=== PATIENT | male | born 1995 | race Caucasian/White ===

== ENCOUNTER 2017-10-04 02:32 | Inpatient (IN) | payer OTHER ==
[2017-10-04 02:40] VITALS: BP 135/97; PULSE 111; RESP 16; TEMP 98.1; O2SAT 99
[2017-10-04 02:55] VITALS: BP 141/99; PULSE 104; RESP 18; O2SAT 98
[2017-10-04] MEDS ORDERED: AMOXICILLIN/CLAVULANATE K 875 MG TAB PO ONE (03:00)
[2017-10-04] MEDS ORDERED: TETANUS/DIPHTHERIA TOXOID ADULT 0.5 ML VIAL IM ONE (03:00)
[2017-10-04] MEDS ORDERED: oxyCODONE/ACETAMINOPHEN 5 MG/325 MG TAB PO ONE (03:00)
--- NOTE | 2017-10-04 03:45 | RADRPT ---
EXAM DATE/TIME: 10/04/2017 03:28 [place] COMPARISON: No previous studies available for comparison. INDICATIONS : Right hand pain, light fell on hand. MEDICAL HISTORY : None. SURGICAL HISTORY : None. ENCOUNTER: Initial ACUITY: 1 day PAIN SCORE: 10/10 LOCATION: Right hand, second and third digit FINDINGS: Crushtype fracture seen head and neck region of the proximal phalanx of the long finger. There is a s agittally oriented fracture that essentially bisects the condyle to the head of the bone. Approximate ly 1 mm of separation of the fracture fragments at the articular surface. The neck portion of the fra cture is nearly transverse. Focal collection of radiopaque debris seen in the soft tissues medial to the long finger proximal int erphalangeal joint. CONCLUSION: Fracture distally of the long finger proximal phalanx as described above, intra-articular at the prox imal interphalangeal joint. Collection of radiopaque debris in the soft tissues medial to the joint. Oliver Sandoval MD on October 04, 2017 at 3:42 Board Certified Radiologist. This report was verified electronically.
[2017-10-04] MEDS ORDERED: HYDROmorphone HCL PF 2 MG/ML VIAL ONE (03:49)
[2017-10-04] MEDS ORDERED: HYDROmorphone HCL PF 2 MG/ML VIAL IV PUSH ONE (03:50)
--- NOTE | 2017-10-04 03:59 | PD ---
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 It slammed down onto his right hand He comes into the ER with pain and swelling and bleeding Injury happened just prior to arrival ...JPTA . tetanus status unknown . Pt is given augmentin and percocet and xrays ordered Dr flores called , [place] tech Hung bedside PFS Past Medical History Cancer: Yes (stage 2 testicular with chemo 2013) Hypertension: Yes (borderline) Medical other: Yes (blood clot in lung from picc line 2014) Tetanus Vaccination: Unknown Influenza Vaccination: No Past Surgical History Surgical History: No Previous Surgery Other Surgery: Yes (2013 testicle removal) Social History Alcohol Use: Yes (occasional ) Tobacco Use: No Substance Use: No Allergies-Medications (Allergen,Severity, Reaction): Coded Allergies: No Known Allergies (Unverified , 10/04/17) Reported Meds & Prescriptions Reported Meds & Active Scripts Active Percocet (Oxycodone-Acetaminophen) 7.5-325 mg Tab 1 Tab PO Q6H PRN Review of Systems Except as stated in HPI: all other systems reviewed are Neg Physical Exam Narrative RIGHT HAND swollen tender bleeding liner streaks ontop of the PIP joints 2-4 th finger dorsum hand symetrically swollen and fingers are all symetrically swollen Data Data Last Documented VS Orders Orders Oxycodone-Acetamin 5-325 Mg (Percocet (10/04/17 03:00) Tetanus/Diphtheria Tox Adult (Tetanus/Di (10/04/17 03:00) Amoxicil-Clavulanate (Augmentin) (10/04/17 03:00) Hand, Complete ([id number]) (10/04/17 ) Consult Hand Surgery (10/04/17 ) Complete Blood Count With Diff (10/04/17 03:41) Comprehensive Metabolic Panel (10/04/17 03:41) Prothrombin Time / Inr (Pt) (10/04/17 03:41) Hydromorphone Pf Inj (Dilaudid Pf Inj) (10/04/17 03:49) Hydromorphone Pf Inj (Dilaudid Pf Inj) (10/04/17 03:50) (Hub Use Only)Inp Phy Cons/Ref (10/04/17 03:56) Admit To Inpatient (10/04/17 ) Vital Signs (Adult) Q4H (10/04/17 04:18) Activity Oob With Assistance (10/04/17 04:18) Diet Npo (10/04/17 Breakfast) Sodium Chlor 0.9% 1000 Ml Inj (Ns 1000 M (10/04/17 04:18) Sodium Chloride 0.9% Flush (Ns Flush) (10/04/17 04:30) Sodium Chloride 0.9% Flush (Ns Flush) (10/04/17 09:00) Acetaminophen (Tylenol) (10/04/17 04:30) Ondansetron Inj (Zofran Inj) (10/04/17 04:30) Ot Request For Service (10/04/17 04:18) Naloxone Inj (Narcan Inj) (10/04/17 04:30) Docusate Sodium-Senna (Sarai-Colace) (10/04/17 09:00) Magnesium Hydroxide Liq (Milk Of Magnesi (10/04/17 04:30) Sennosides (Senokot) (10/04/17 04:30) Bisacodyl Supp (Dulcolax Supp) (10/04/17 04:30) Lactulose Liq (Lactulose Liq) (10/04/17 04:30) Inpatient Certification (10/04/17 ) Hydromorphone Pf Inj (Dilaudid Pf Inj) (10/04/17 04:30) Sling Colles (10/04/17 ) Ice Cuff (10/04/17 ) Admit Order (Ed Use Only) (10/04/17 05:47) Labs Laboratory Tests Test 10/04/17 03:45 White Blood Count 9.3 TH/MM3 Red Blood Count 5.37 MIL/MM3 Hemoglobin 15.7 GM/DL Hematocrit 43.6 % Mean Corpuscular Volume 81.2 FL Mean Corpuscular Hemoglobin 29.2 PG Mean Corpuscular Hemoglobin Concent 36.0 % Red Cell Distribution Width 13.4 % Platelet Count 194 TH/MM3 Mean Platelet Volume 8.0 FL Neutrophils (%) (Auto) 63.3 % Lymphocytes (%) (Auto) 27.2 % Monocytes (%) (Auto) 7.5 % Eosinophils (%) (Auto) 1.5 % Basophils (%) (Auto) 0.5 % Neutrophils # (Auto) 5.9 TH/MM3 Lymphocytes # (Auto) 2.5 TH/MM3 Monocytes # (Auto) 0.7 TH/MM3 Eosinophils # (Auto) 0.1 TH/MM3 Basophils # (Auto) 0.0 TH/MM3 CBC Comment AUTO DIFF Differential Comment AUTO DIFF CONFIRMED Platelet Estimate NORMAL Platelet Morphology Comment NORMAL Red Cell Morphology Comment NORMAL Prothrombin Time 11.0 SEC Prothromb Time International Ratio 1.1 RATIO Blood Urea Nitrogen 22 MG/DL Creatinine 1.20 MG/DL Random Glucose 118 MG/DL Total Protein 7.4 GM/DL Albumin 4.1 GM/DL Calcium Level 9.4 MG/DL Alkaline Phosphatase 106 U/L Aspartate Amino Transf (AST/SGOT) 39 U/L Alanine Aminotransferase (ALT/SGPT) 87 U/L Total Bilirubin 0.8 MG/DL Sodium Level 142 MEQ/L Potassium Level 3.6 MEQ/L Chloride Level 106 MEQ/L Carbon Dioxide Level 26.0 MEQ/L Anion Gap 10 MEQ/L Estimat Glomerular Filtration Rate 76 ML/MIN [facility] Medical Decision Making Medical Screen Exam Complete: Yes Emergency Medical Condition: Yes Differential Diagnosis fracture vs high pressure crush injury compartment syndrome lacerations other Narrative Course xrays show fracture crush type to 3rd finger and there are libear lacerations to dorsum of R hand and has antibiotics and tetanus up dated and admitted for hand surgery consult for crush swelling injury and risk of compartment Diagnosis Primary Impression: Crush injury of hand Qualified Codes: S67.21XA - Crushing injury of right hand, initial encounter Additional Impression: Fractured hand Scripts Oxycodone-Acetaminophen (Percocet) 7.5-325 mg Tab 1 TAB PO Q6H Y for PAIN, #20 TAB 0 Refills Prov: Marielle Luhter DO 10/04/17 Ryan Ahmadi MD Oct 04, 2017 03:59
[2017-10-04] MEDS ORDERED: HYDROmorphone HCL PF 1 MG/ML VIAL IV PUSH ONE (04:00)
[2017-10-04 04:06] LABS: AUTOMATED NEUTROPHIL # 5.9 TH/MM3 (1.8-7.7); BASOPHIL % 0.5 % (0.0-2.0); EOSINOPHIL # 0.1 TH/MM3 (0-0.4); EOSINOPHIL % 1.5 % (0.0-4.0); HEMATOCRIT 43.6 % (39.0-51.0); HEMOGLOBIN 15.7 GM/DL (13.0-17.0); LYMPH % 27.2 % (9.0-44.0); LYMPHOCYTE # 2.5 TH/MM3 (1.0-4.8); MEAN CELL VOLUME 81.2 FL (80.0-100.0); MEAN CORPUSCULAR HEMOGLOBIN 29.2 PG (27.0-34.0); MONO % 7.5 % (0.0-8.0); MONOCYTE # 0.7 TH/MM3 (0-0.9); NEUT % 63.3 % (16.0-70.0); PLATELET COUNT 194 TH/MM3 (150-450); RED BLOOD COUNT 5.37 MIL/MM3 (4.50-5.90); RED CELL DISTRIBUTION WIDTH 13.4 % (11.6-17.2); WHITE BLOOD COUNT 9.3 TH/MM3 (4.0-11.0)
[2017-10-04 04:13] LABS: INTERNATIONAL NORMALIZED RATIO 1.1 RATIO
[2017-10-04] MEDS ORDERED: SODIUM CHLOR 0.9% 1000 ML INJ 1,000 ML IV SCH (04:18)
--- NOTE | 2017-10-04 04:21 | HHI.HP ---
[facility] Primary Care Physician Admission Diagnosis Diagnoses: Travel History International Travel<30 Days: No Contact w/Intl Traveler <30 Da: No Traveled to Known Affected Are: No History of Present Illness 21-year-old male presents to the emergency department for evaluation of a right hand injury. 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 His hand slipped to underneath the light pole as it was being lowered and the patient sustained a crush injury to his right hand. He reports a crunching sound at the moment of impact. He endorses significant right hand pain and swelling. Several lacerations are present on the dorsum of the hand. Review of Systems Except as stated in HPI: all other systems reviewed are Neg Denies fever or chills Denies blurry vision, otorrhea, rhinorrhea Denies sore throat and cough No chest pain, palpitations No shortness of breath or wheezing No abdominal pain Denies constipation/diarrhea/nausea/vomiting Denies muscle pain Denies focal weakness No rashes Past Family Social History Past Medical History History of testicular cancer Past Surgical History Radical orchiectomy Removal of blood clot right atrium in 2014 (caused by PICC line which was present for chemotherapy) Reported Medications Reported Meds & Active Scripts Active No Active Prescriptions or Reported Medications Allergies: Coded Allergies: No Known Allergies (Unverified , 10/04/17) Family History Father with coronary artery disease, [place] at age 47 Social History Facial alcohol. Denies tobacco or illicit drugs. Physical Exam Vital Signs Vital Signs Date Time Temp Pulse Resp B/P (MAP) Pulse Ox O2 Delivery O2 Flow Rate FiO2 10/04/17 02:55 104 18 141/99 (113) 98 Room Air 10/04/17 02:40 98.1 111 16 135/97 (110) 99 Physical Exam GENERAL: male sitting up in bed SKIN: No rashes, ecchymoses or lesions. Cool and dry. HEAD: Atraumatic. Normocephalic. No temporal or scalp tenderness. EYES: Pupils equal round and reactive. Extraocular motions intact. No scleral icterus. No injection or drainage. ENT: Nose without bleeding, purulent drainage or septal hematoma. Throat without erythema, tonsillar hypertrophy or exudate. Uvula midline. Airway patent. NECK: Trachea midline. No JVD or lymphadenopathy. Supple, nontender, no meningeal signs. CARDIOVASCULAR: Regular rate and rhythm without murmurs, gallops, or rubs. RESPIRATORY: Clear to auscultation. Breath sounds equal bilaterally. No wheezes , rales, or rhonchi. GASTROINTESTINAL: Abdomen soft, non-tender, nondistended. No hepato-splenomegaly , or palpable masses. No guarding. MUSCULOSKELETAL: Extremely swollen right hand with several lacerations present. Neurovascularly intact. NEUROLOGICAL: Awake and alert. Cranial nerves II through XII intact. Motor and sensory grossly within normal limits. Normal speech. Laboratory Laboratory Tests Test 10/04/17 03:45 Caprini VTE Risk Assessment Caprini VTE Risk Assessment: No/Low Risk (score <= 1) Caprini Risk Assessment Model Point Value = 1 Point Value = 2 Point Value = 3 Point Value = 5 Age 41-60 Minor surgery BMI > 25 kg/m2 Swollen legs Varicose veins or History of unexplained or recurrent spontaneous Oral contraceptives or hormone replacement Sepsis (< 1 month) Serious lung disease, including pneumonia (< 1 month) Abnormal pulmonary function Acute myocardial infarction Congestive heart failure (< 1 month) History of inflammatory bowel disease Medical patient at bed rest Age 61-74 Arthroscopic surgery Major open surgery (> 45 min) Laparoscopic surgery (> 45 min) Malignancy Confined to bed (> 72 hours) Immobilizing plaster cast Central venous access Age >= 75 History of VTE Family history of VTE Factor V Leiden Prothrombin [id number] Lupus anticoagulant Anticardiolipin antibodies Elevated serum homocysteine Heparin-induced thrombocytopenia Other congenital or acquired thrombophilia Stroke (< 1 month) Elective arthroplasty Hip, pelvis, or leg fracture Acute spinal cord injury (< 1 month) Prophylaxis Regimen Total Risk Factor Score Risk Level Prophylaxis Regimen 0-1 Low Early ambulation 2 Moderate Order ONE of the following: *Sequential Compression Device (SCD) *Heparin 5000 units SQ BID 3-4 Higher Order ONE of the following medications: *Heparin 5000 units SQ TID *Enoxaparin/Lovenox 40 mg SQ daily (WT < 150 kg, CrCl > 30 mL/min) *Enoxaparin/Lovenox 30 mg SQ daily (WT < 150 kg, CrCl > 10-29 mL/min) *Enoxaparin/Lovenox 30 mg SQ BID (WT < 150 kg, CrCl > 30 mL/min) AND/OR *Sequential Compression Device (SCD) 5 or more Highest Order ONE of the following medications: *Heparin 5000 units SQ TID (Preferred with Epidurals) *Enoxaparin/Lovenox 40 mg SQ daily (WT < 150 kg, CrCl > 30 mL/min) *Enoxaparin/Lovenox 30 mg SQ daily (WT < 150 kg, CrCl > 10-29 mL/min) *Enoxaparin/Lovenox 30 mg SQ BID (WT < 150 kg, CrCl > 30 mL/min) AND *Sequential Compression Device (SCD) Assessment and Plan Assessment and Plan Assessment/plan: 1. Right hand injury/trauma And x-ray significant for fracture distally of the long finger proximal phalanx intra-articular at the proximal interphalangeal joint, personally reviewed Hand surgery consulted, appreciate assistance Monitor closely for signs/symptoms of compartment syndrome Dilaudid for pain Nothing by mouth until cleared by hand surgery OT consulted, appreciate recommendations FEN NPO NS at 100 cc/hr Electrolytes: pending Physician Certification 2 Midnight Certification Type: Admission for Inpatient Services Order for Inpatient Services The services are ordered in accordance with Medicare regulations or non- Medicare payer requirements, as applicable. In the case of services not specified as inpatient-only, they are appropriately provided as inpatient services in accordance with the 2-midnight benchmark. Estimated LOS (days): 2 2 days is the estimated time the patient will need to remain in the hospital, assuming treatment plan goals are met and no additional complications. Post-Hospital Plan: Not yet determined Rajani Rocha MD Oct 04, 2017 04:21
[2017-10-04 04:28] LABS: ALBUMIN 4.1 GM/DL (3.4-5.0); ALT (GPT) 87 U/L (12-78); AST (GOT) 39 U/L (15-37); BLOOD UREA NITROGEN 22 MG/DL (7-18); CALCIUM 9.4 MG/DL (8.5-10.1); CHLORIDE 106 MEQ/L (98-107); GLOMERULAR FILTRATION RATE 76 ML/MIN (>89); GLUCOSE,RANDOM 118 MG/DL (74-106); SODIUM (NA) 142 MEQ/L (136-145)
[2017-10-04 04:30] LABS: ALKALINE PHOSPHATASE 106 U/L (45-117); TOTAL BILIRUBIN ADULT 0.8 MG/DL (0.2-1.0); TOTAL PROTEIN 7.4 GM/DL (6.4-8.2)
[2017-10-04] MEDS ORDERED: NALOXONE HCL 0.4 MG/ML AMP IV PUSH PRN (04:30)
[2017-10-04] MEDS ORDERED: SENNOSIDES 8.6 MG TAB PO PRN (04:30)
[2017-10-04] MEDS ORDERED: BISACODYL 10 MG SUPP RECTAL PRN (04:30)
[2017-10-04] MEDS ORDERED: SODIUM CHLORIDE 0.9% FLUSH 10 ML FLUSH IV FLUSH PRN (04:30)
[2017-10-04] MEDS ORDERED: HYDROmorphone HCL PF 2 MG/ML VIAL IV PUSH PRN (04:30)
[2017-10-04] MEDS ORDERED: ACETAMINOPHEN 325 MG TAB PO PRN (04:30)
[2017-10-04] MEDS ORDERED: MAGNESIUM HYDROXIDE SUSP 30 ML CUP PO PRN (04:30)
[2017-10-04] MEDS ORDERED: ONDANSETRON HCL 4 MG/2 ML VIAL IVP PRN (04:30)
[2017-10-04] MEDS ORDERED: LACTULOSE SYRUP 20 GM/30 ML CUP PO PRN (04:30)
[2017-10-04 06:08] VITALS: BP 130/64; PULSE 80; RESP 16; TEMP 97.6; O2SAT 97
[2017-10-04] MEDS ORDERED: DOCUSATE SODIUM 50 MG/SENNA 8.6 MG TAB PO SCH (09:00)
[2017-10-04] MEDS ORDERED: SODIUM CHLORIDE 0.9% FLUSH 10 ML FLUSH IV FLUSH SCH (09:00)
[2017-10-04 09:42] VITALS: BP 129/76; PULSE 78; RESP 16; O2SAT 96
--- NOTE | 2017-10-04 14:17 | MB ---
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 He was admitted to watch for compartment syndrome by the emergency room. I was consulted to evaluate for this. PAST MEDICAL HISTORY: He had testicular cancer with chemotherapy, borderline hypertension. He had a right atrial thrombus from a PICC line 2014, which he had removed surgically in [place], [place]. PAST SURGICAL HISTORY: Open heart surgery for clot removal as well as bilateral orchiectomies. ALLERGIES: NO KNOWN DRUG ALLERGIES. MEDICATIONS: Denied. REVIEW OF SYSTEMS: Patient not complaining of any headaches, double or blurry vision. Not complaining of any coughing, wheeze or shortness of breath. Not complaining of any chest pain or palpitations. Not complaining of any nausea, vomiting or abdominal pain. He is not complaining of any burning, frequency or urgency with urination. He is not complaining of any spine, neck or back pain. He is not complaining of any anxiety, depression, or suicidal ideations. Not complaining of any lesions, rashes or eruptions. He is not complaining of any night sweats, fevers or chills. X-RAYS: Performed and reviewed in the hospital and reveal a middle finger proximal phalanx condylar intraarticular fracture. VITAL SIGNS: Temperature is 98.1, heart rate 100, respiratory rate 16, blood pressure 135/97. Pulse oximetry is 97% to 99% on every finger on the right hand. EXAMINATION: The patient is awake, alert, oriented x 3. Normocephalic, atraumatic. Pupils are equal, round. His respiratory effort is normal. He is very pleasant. He is sitting comfortably in his bed with his family in the room. Examination of the right upper extremity reveals a little bit of erythema and swelling to right second, third and fourth fingers. There is no injury to the hand, so there is no compartment syndrome. The fingers are all soft as well and all appear intact. There is a small christopher on the skin and some abrasion, but there is no evidence of any open component. Capillary refill is less than 2 seconds all fingertips. Fingertips are all soft. The muscle compartments in the hand are completely soft. Sensation is fully intact as well. Palpable radial pulse. IMPRESSION: Crush injury second, third and fourth fingers, right side. Also, right third proximal phalangeal fracture. PLAN: I recommend continued elevation, splint. I do not believe this will develop into compartment syndrome. I would recommend elective repair of the middle finger. The patient states he lives 2[place]/2 hours away, so he can see us in the office here if he would like, or I have given him the names of 2 surgeons over in the area where he lives who are excellent and will take it from there. I am going to come back after lunch after seeing patients in the office, and I will recheck him to make sure that he is not getting any signs or symptoms of compartment syndrome, and if he looks okay at that time, then it will be my recommendation that he be discharged. Discussed this with the patient's family, as well as his nurse, as well as the emergency room physician, and they all agreed. I discontinued the use of the cooling wrap in the splint, which was a fantastic idea to start. The patient and his family understand all this and agree and are grateful, and they wish to proceed as we have discussed. MD PRICILA Roche/RHONDA , 01:51 PM , 02:15 PM
[2017-10-04] MEDS ORDERED: PERC7.5T13 PO (14:27)
--- NOTE | 2017-10-04 20:03 | HHI.PR ---
Subjective Remarks Follow-up for crush hand injury. Patient was evaluated by hand surgery. I was called by the nurse around 2:45 PM. Per nursing staff and surgery cleared patient for discharge. Patient will follow up with her surgeon in [facility]. Objective Vitals Vital Signs Date Time Temp Pulse Resp B/P (MAP) Pulse Ox O2 Delivery O2 Flow Rate FiO2 10/04/17 09:42 78 16 129/76 (93) 96 Room Air 10/04/17 06:08 97.6 80 16 130/64 (86) 97 Room Air 10/04/17 02:55 104 18 141/99 (113) 98 Room Air 10/04/17 02:40 98.1 111 16 135/97 (110) 99 Result Diagram: 10/04/17 0345 10/04/17 0345 Imaging Last Impressions Hand X-Ray 10/04/17 0000 Signed Impressions: Service Date/Time: Wednesday, October 04, 2017 03:28 - CONCLUSION: Fracture distally of the long finger proximal phalanx as described above, intra-articular at the proximal interphalangeal joint. Collection of radiopaque debris in the soft tissues medial to the joint. Oliver Sandoval MD Objective Remarks GENERAL: Alert, oriented 3, NAD. SKIN: Warm and dry. HEAD: Normocephalic. EYES: No scleral icterus. No injection or drainage. NECK: Supple, trachea midline. No JVD or lymphadenopathy. CARDIOVASCULAR: Regular rate and rhythm without murmurs, gallops, or rubs. RESPIRATORY: Breath sounds equal bilaterally. No accessory muscle use. GASTROINTESTINAL: Abdomen soft, non-tender, nondistended. MUSCULOSKELETAL: No cyanosis, or edema. Right hand erythema and swelling present. BACK: Nontender without obvious deformity. No CVA tenderness. A/P Assessment and Plan Mr. Hodge is a pleasant 21-year-old patient male who presented to the emergency department after he sustained a crush injury to his right hand. X- ray shows fracture distally of the long finger proximal phalanx intra-articular at the proximal interphalangeal joint. And surgery was consulted. After evaluating, and surgery cleared for discharge which was informed to me by patient's nurse. Subsequently patient was discharged home with oral pain medications. Patient wants to follow-up with a hand surgeon in [facility]. Patient was discharged in hemodynamically stable condition. He was also instructed that if he cannot get follow-up with a hand surgeon in [facility], he should seek medical attention at the nearest emergency room. He is also welcome to come back to [place]. Discharge patient to home Condition on discharge: Improved Regular Diet as tolerated Ad Sherin activity Rx written: Percocet 7.5mg Q6hrs PRN #20. Follow-up with primary care physician PRN. Hand surgery within next few days. Marielle Luther DO Oct 04, 2017 20:03
== END 2017-10-04 20:03 | disposition home or self-care (01) | DRG 563 ==
LOC: NEPE 02:32 → NEDA 05:48 → NEDH 08:54
PROVIDERS: ADMIT Hospitalist; ATTEND Hospitalist
PROC: 2W3JX1Z Immobilization of Right Finger using Splint (ICD-10-PCS; principal; 2017-10-04)
DX: S62.612A Displaced fracture of proximal phalanx of right middle finger, initial encounter for closed fracture (principal); S67.21XA Crushing injury of right hand, initial encounter; S67.192A Crushing injury of right middle finger, initial encounter; S67.190A Crushing injury of right index finger, initial encounter; S67.194A Crushing injury of right ring finger, initial encounter; Z92.21 Personal history of antineoplastic chemotherapy; Z85.47 Personal history of malignant neoplasm of testis; Z86.711 Personal history of pulmonary embolism; W23.0XXA Caught, crushed, jammed, or pinched between moving objects, initial encounter; Y92.89 Other specified places as the place of occurrence of the external cause; Y99.0 Civilian activity done for income or pay
CPT/HCPCS: 73130; 80053; 85025; 85610; 90471; 90714; 96374; J1170; J7030